=== PATIENT | male | born 1970 | race Caucasian/White ===

== ENCOUNTER → 2016-08-09 | Outpatient (CLI) | payer OTHER ==
--- NOTE | 2016-08-09 14:13 | XR ---
Left hand HISTORY: Sprain left ring finger 3 views of the left hand No comparisons Bone mineralization, joint spaces and alignment are maintained. Punctate ossific density present at t he volar aspect of the distal portion of the proximal phalanx of the fourth digit of the left hand co uld represent a small chip fracture, correlate for point tenderness. IMPRESSION: No dislocation is evident. Findings at the proximal interphalangeal joint of the fourth d igit noted on the oblique view, correlate for tenderness.
== END | disposition home or self-care (01) ==
LOC: RADXRMAIN 13:47
PROVIDERS: ATTEND Emergency Medicine
DX: S63.615A Unspecified sprain of left ring finger, initial encounter (principal); W23.1XXA Caught, crushed, jammed, or pinched between stationary objects, initial encounter